=== PATIENT | male | born 1955 | race Caucasian/White ===

== ENCOUNTER 2016-11-19 10:17 | Inpatient (IN) | payer OTHER ==
[~2016-11-19] VITALS: Ht 180.3 cm; Wt 109.9 kg
--- NOTE | ~2016-11-19 | HP ---
ADMIT: 11/19/2016 RM/LOC: 419 [facility] MR#: [id number] [address] [address] [place] [address] History and Physical SEX: M AGE: 61 : 1955 Corrected: 11/20/2016 0724 njv DATE OF SERVICE: CHIEF COMPLAINT: Left arm pain and swelling, discharge. HISTORY OF PRESENT ILLNESS: Escobar is a 61-year-old gentleman who presented to the [facility] Emergency Department today with approximately 8 days of progressively worsening swelling, redness, and warmth from his left arm and a draining wound overlying the left olecranon. The wound was suffered as a result of falling through a crawl space door about a week ago over the hol. As it was closed over the , he did not seek medical care, and since that time, the laceration has done nothing but continuing to drain a seropurulent fluid. The swelling and redness in his arm and tenderness in his arm as well as the warmth have all really gotten worse in the last 24 to 48 hours and he has began running fevers as a result of this. PAST MEDICAL HISTORY: Remarkable for; 1. Diabetes mellitus, type 2, insulin dependent. 2. Hyperlipidemia. 3. Hypertension. 4. Obesity. 5. History of bladder cancer. 6. Additionally, he also has obstructive sleep apnea. PAST SURGICAL HISTORY: He has had a skin graft to his back. He had an excision of a bladder cancer and lastly a septoplasty for his obstructive sleep apnea. MEDICATIONS: His outpatient medications include; 1. Metformin 1000 mg b.i.d. 2. Lipitor 80 mg daily. 3. Lantus. 4. TriCor 145 mg daily. 5. It should be noted that he is also on doxycycline 100 mg b.i.d., which was started by his outpatient provider, Dr. Bentley, sometime in the last week or so. ALLERGIES: HE HAS NO KNOWN MEDICAL ALLERGIES. SOCIAL HISTORY: He is . His is with him here in the ER as I see them. He denies any history of tobacco use. He is not a current smoker or chewer. He denies any alcohol or recreational drug use. He is retired. 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 REVIEW OF SYSTEMS: He denies any chest pain, shortness of breath, abdominal pain, nausea, vomiting, or diarrhea. Remainder of his review of systems is as per HPI. All others reviewed were negative. ADMIT: 11/19/2016 RM/LOC: 419 [facility] MR#: [id number] [address] [place] [id number] [place] [address] History and Physical SEX: M AGE: 61 : 1955 PHYSICAL EXAMINATION: VITAL SIGNS: His blood pressure is 123/77, pulse 86, respirations 18, temperature 99.5, and O2 saturation is 98% on room air. Weight is 108.3 kg. GENERAL: He is awake, alert, uncomfortable, but not in any acute distress. HEENT: Normocephalic and atraumatic. HEART: Regular rate and rhythm. No murmurs, gallops, or rubs. LUNGS: Clear to auscultation bilaterally. ABDOMEN: Soft, nontender, and nondistended. No rebound, guarding, or masses. EXTREMITIES: His left arm from about the mid biceps region all the way down to the wrist is 2 to 3+ swollen, mildly erythematous, very warm, and he has a 1- 1/2 to 2 cm laceration overlying the left olecranon, which is draining a seropurulent fluid. He is very tender over this area. LABORATORY AND X-RAY DATA: CBC shows an elevated white count of 12, hemoglobin of 11.7, and platelets of 220. Procalcitonin is negative. CMP remarkable only for random glucose of 262. Cardiac enzymes are negative. EKG is unremarkable. Showing sinus rhythm without any hyperacute ST or T-wave changes. No ischemic changes. Blood cultures are pending. INR is within the acceptable range. Lactic acid is pending. ASSESSMENT: 1. Left arm cellulitis. 2. Questionable left septic olecranon bursitis. 3. Diabetes mellitus, type 2, control unknown. ADMIT: 11/19/2016 RM/LOC: 419 [facility] MR#: [id number] [address] [place] [phone] ESC[place] [address] [place] [address] History and Physical SEX: M AGE: 61 : 1955 4. Hyperlipidemia. 5. Obstructive sleep apnea. 6. History of bladder cancer. PLAN: Escobar will be admitted to the 4th floor PCU tele bed. Start him on vancomycin, Zosyn, and clindamycin empirically. We got to culture that wound. I am also going to have Orthopedics consult to determine if debridement of the area or olecranon bursa is necessary. We will start him on Accu-Cheks and Humalog sliding scale, and start him on Dilaudid EPIC SPECIALIST for pain. We will start him on Lovenox and TEDs and SCDs for DVT prophylaxis. Abhijeet Sheppard MD/ hortencia JOB #: [id number] CC: Abhijeet Sheppard, Attending Physician Charity Bentley, Family Physician Corrected: 11/20/2016 0724 njsabine
--- NOTE | 2016-11-20 09:57 | CO ---
ADMIT: 11/19/2016 RM/LOC: 419 [facility] MR#: [id number] [address] [place] [phone] [place] [address] Consultation Report SEX: M AGE: 61 : 1955 Corrected: 11/20/2016 0807 njv DATE OF CONSULTATION: 11/19/2016 ATTENDING PHYSICIAN: Abhijeet Sheppard CONSULTING PHYSICIAN: Cady Loving MD CHIEF COMPLAINT: Left elbow pain. HISTORY: This 61-year-old male, presents to the emergency room with a small laceration over the left elbow he sustained in his home a week ago. Yesterday, he said that it drained quite a bit through the week, but night, he started having pain, swelling, redness, and drainage changed to purulent material. Because of this, he was evaluated at [facility] yesterday, placed on I believe doxycycline and because of his progressive increase in pain and swelling, he presented to the ER. PAST MEDICAL HISTORY: He has a history of diabetes. MEDICATIONS: Listed in the chart. ALLERGIES: HE REPORTS NO ALLERGIES TO MEDICINES. FAMILY HISTORY: Noncontributory. PHYSICAL EXAMINATION: This patient has 2 to 3+ soft tissue swelling in the entire hand, forearm, and elbow area, has 1 cm laceration over the tip of the olecranon and a very boggy edematous olecranon bursa. He has no pain with range of motion of the elbow joint itself. He has erythema that now extends ADMIT: 11/19/2016 RM/LOC: 419 [facility] MR#: [id number] [address] [place] [phone] [address] [place] [address] [place] [address] Consultation Report SEX: M AGE: 61 : 1955 from around the elbow, which is the most severe all the way down to the wrist. IMPRESSION: Septic left olecranon bursitis with cellulitis left arm. RECOMMENDATIONS: I have discussed this with both the patient and the patient's . I recommended incision and drainage of the left olecranon bursa. This may need to be packed open and close secondarily. They understand. All questions were answered. Risks, benefits, alternatives, as well as potential complications were discussed. We will proceed on 11/20/2016. Cady Loving MD/ hortencia JOB #: [id number] CC: Abhijeet Sheppard, Attending Physician Charity Bentley, Family Physician Corrected: 11/20/2016 0807 brian
--- NOTE | 2016-11-21 15:52 | OR ---
ADMIT: 11/19/2016 RM/LOC: 419 [id number] [id number] [address] [address] [place] [address] Operative/Delivery Room Report SEX: M AGE: 61 : 1955 SURGERY DATE: 11/20/2016 SURGEON: Cady Loving MD PREOPERATIVE DIAGNOSIS: Left septic olecranon bursitis with cellulitis. POSTOPERATIVE DIAGNOSIS: Left septic olecranon bursitis with cellulitis. PROCEDURES: 1. Incision and drainage, left elbow. 2. Excise septic bursa, left elbow. ANESTHESIA: General. INFUSION RN: PRINCE Lopez TOURNIQUET TIME: 20 minutes. ESTIMATED BLOOD LOSS: 10 mL. SPECIMEN: Bursa. DESCRIPTION OF PROCEDURE: This patient was brought to the operating room. After satisfactory level of general anesthesia was achieved, the left upper extremity was prepped and draped in the usual sterile fashion. The patient had an oblique 1 cm laceration over the olecranon process. Under tourniquet ischemia, I used both limbs of this to make a longitudinal incision ending up with a Z-type incision. Skin flaps were developed at the level of the subcutaneous tissue. The laceration went directly into the olecranon bursa and the bursa was very thickened and draining purulent material. Even the soft tissues oozed purulent drainage. The bursa was then circumferentially excised and any necrotic soft tissue was debrided as well. I then irrigated the wound using pulsatile lavage using 3 L of bacitracin solution, then 3 L of normal saline. When completed, I released the tourniquet, obtained hemostasis. Then I packed the wound open with Betadine-soaked 2 inch Vani, then loosely closed the skin over the packing using interrupted 2-0 nylon. A bulky sterile dressing was applied and the arm wrapped from [id number]-fb-[id number] with Bj bandage and when completed, the patient was transferred from the operative suite in stable condition. Cady Loving MD/ hortencia JOB #: [id number] CC: Abhijeet Sheppard, Attending Physician Charity Bentley, Family Physician
--- NOTE | 2016-11-23 07:41 | ER ---
ADMIT: 11/19/2016 RM/LOC: ER [facility] MR#: [id number] [address] [address] [place] [address] Emergency Room Report SEX: M AGE: 61 : 1955 DATE: 11/19/2016 ADDENDUM: CHIEF COMPLAINT: Swollen left arm. 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 Bentley. He saw her actually in the clinic yesterday, started on doxycycline. The wound has worsened today and has continued to have fever, so came into the ER. A sepsis protocol was ordered. Procalcitonin is 0.13. CMP is normal except for glucose of 262, albumin 3.3, and GFR of 58. Cardiac enzymes are normal. White count is 12 and hemoglobin is 11.7. PT, INR are 12.9 and 1.23. Chest x- ray is negative for any acute infection. Lactic acid is less than 0.1. EKG shows sinus rhythm rate at 81. No ST elevation or depression. CLINICAL IMPRESSION: Cellulitis to the left arm. He was admitted to Dr. Sheppard. Dr. Sheppard came into the ED to see the patient. PRINCE Cleary / Acosta Berumen MD / hortencia JOB #: [id number] CC: Acosta Berumen MD, Attending Physician Charity Bentley MD, Family Physician
[2016-11-25] MEDS ORDERED: GLUCOPHAGE1000 MG PO (10:20)
[2016-11-25] MEDS ORDERED: LIPITOR80 MG PO (10:20)
[2016-11-25] MEDS ORDERED: TRICOR145 MG PO (10:20)
[2016-11-25] MEDS ORDERED: LORTAB 7.5-3251 EACH PO (10:21)
[2016-11-25] MEDS ORDERED: KEFLEX-DPS500 MG PO (10:21)
[2016-11-25] MEDS ORDERED: LANTUS100 UNITS/ SQ (10:21)
--- NOTE | 2016-12-02 08:41 | DS ---
ADMIT: 11/19/2016 RM/LOC: 419 [facility] MR#: [id number] [facility]#: [id number] [address] [address] ESCOBAR [place] [address] [place] [address] Discharge Summary SEX: M AGE: 61 : 1955 ADMISSION DATE: 11/19/2016 DISCHARGE DATE: 11/24/2016 ADMITTING DIAGNOSES: 1. Left arm cellulitis. 2. Questionable left septic olecranon bursitis. 3. Diabetes mellitus, type 2. 4. Hyperlipidemia. 5. Obstructive sleep apnea. 6. History of bladder cancer. 7. Obesity. DISCHARGE DIAGNOSES: 1. Left upper extremity cellulitis, improving. 2. Septic left olecranon bursitis, status post left olecranon bursectomy. 3. Diabetes mellitus, type 2. 4. Hypertension. 5. Hyperlipidemia. 6. Obesity. 7. History of bladder cancer. 8. Obstructive sleep apnea. CONSULTATIONS: Cady Loving M.D., Orthopedics, consulted on 11/19/2016 for possible left septic olecranon bursitis. PROCEDURES: Incision, drainage, and excision of septic left olecranon bursa, performed by Dr. Loving on 11/20/2016. HISTORY AND PHYSICAL EXAM: Mr. Martinez is a very pleasant 61-year-old gentleman who presented to the [facility] Emergency Department on 11/19/2016 with complaints of progressively worsening redness, swelling, warmth, and discharge from his left elbow and pain in the left upper extremity for approximately eight days prior to admission. He notes that he had suffered a small laceration to his olecranon area of his skin approximately eight days prior to admission. He was walking over a crawl space and slipped. As it was over the , he did not seek medical attention for the injury and then slowly over the ensuing several days, began noticing redness, warmth, pain, and a seropurulent fluid discharging from the wound over his elbow. He also had begun running fevers as result. On his initial exam, his vitals were stable. He was afebrile. He did, however, have 2-3+ swelling in the left upper extremity extending all the way down into his hands to the point where he could barely identify his MCPs and redness extending up to about his mid arm. He had a 1-1.5 cm laceration overlying his left olecranon bursa from which there was a purulent fluid draining. On his initial lab testing, he had an elevated white count of 12,000, negative procalcitonin, and a random glucose of 262. EKG and cardiac enzymes were unremarkable. Blood cultures were negative. He was subsequently admitted to the hospital for IV antibiotics and Orthopedic consultation. ADMIT: 11/19/2016 RM/LOC: 419 [facility] MR#: [id number] [address] [place] [phone] ESCOBAR MARITNEZ [address] [place] [address] Discharge Summary SEX: M AGE: 61 : 1955 HOSPITAL COURSE: Overall, his hospital course was unremarkable. He was started initially on vancomycin, clindamycin, and Zosyn for the infection. A culture of the discharge from the left olecranon region did come back growing group C strep and his antibiotics were tailored to include discontinuation of his vancomycin, clindamycin, and Zosyn, and he was instead started on Rocephin. Dr. Loving with Orthopedics was consulted for possible left septic olecranon bursitis and did agree that Escobar needed to have this irrigated and debrided. He underwent irrigation debridement of the septic olecranon bursa on 11/20/2016. His antibiotics were continued postoperatively and a decision was made to take him back to the operating room on 11/23/2016 to wash out the wound one more time and to close it. By the morning of 11/24/2016, he had significant improvement of the swelling and cellulitis changes in the rest of his extremity. He did obviously have pain where his elbow had been washed out, but overall clinically, he was much improved. He had remained afebrile. He was tolerating the antibiotics and it was felt that this could be managed further as an outpatient. He was thus discharged from the hospital. DISCHARGE CONDITION: Good. DISPOSITION: He is being discharged home. Discharge medications will include: 1. Lipitor 80 mg at HS. 2. TriCor 145 mg daily. 3. Lantus 35 units at HS. 4. Hydrocodone 7.5/325 one to two tabs every 6 hours as needed for pain. 5. Keflex 500 mg one tab p.o. q.i.d. for an additional 10 days. 6. Metformin 1000 mg b.i.d. FOLLOW UP: I have asked that he follow up in my clinic on 11/28/2016, at 4:00 in the afternoon. I have made this appointment for him and we will clarify with Dr. Loving what he would like for a followup prior to discharge. Abhijeet Sheppard MD/ brian JOB #: [id number] CC: Abhijeet Sheppard MD, Attending Physician Charity Bentley MD, Family Physician
--- NOTE | 2016-12-05 11:26 | OR ---
ADMIT: 11/19/2016 RM/LOC: 419 [facility] MR#: [id number] [address] [address] [place] [address] Operative/Delivery Room Report SEX: M AGE: 61 : 1955 Corrected: 11/30/2016 1244 djs SURGERY DATE: 11/23/2016 SURGEON: Cady Loving MD PREOPERATIVE DIAGNOSES: 1. Incision and drainage, infected left olecranon bursa. 2. Excision left olecranon bursa. ANESTHESIA: General. AQUATIC INSTRUCTOR: PRINCE Lopez. DRAINS: 2 Hemovac drains. ESTIMATED BLOOD LOSS: 25 mL. DESCRIPTION OF PROCEDURE: This patient was brought to the operating room. After a satisfactory level of anesthesia was achieved. The dressing was removed from the left elbow. Several stay sutures were removed and then the packing removed from the wound. The wound appeared to be very clean and no purulent material encountered. The extremity was prepped and draped in the usual sterile fashion. I first irrigated with pulsatile lavage using 3 L of antibiotic solution. Then, another 3 L of normal saline. Once it was thoroughly irrigated, I placed 2 Hemovac drains within the wound and brought it out through separate puncture wounds and at this point, I closed the wound with multiple layers of 2-0 Vicryl in the subcutaneous tissue to minimize space and interrupted 2-0 nylon in the skin. A sterile dressing was applied to the wound and the patient was then transferred from the operative suite in stable condition. Cady Loving MD/ hortencia JOB #: [id number] CC: Abhijeet Shepprad, Attending Physician Charity Bentley, Family Physician Corrected: 11/30/2016 1244 djfaby
== END 2016-11-24 10:51 | disposition home or self-care (01) | DRG 501 ==
LOC: ER 10:17 → 4PCU 12:25
PROVIDERS: ADMIT Family Medicine
DX: M70.22 Olecranon bursitis, left elbow (principal); L03.114 Cellulitis of left upper limb; E11.65 Type 2 diabetes mellitus with hyperglycemia; I10 Essential (primary) hypertension; B95.4 Other streptococcus as the cause of diseases classified elsewhere; E78.5 Hyperlipidemia, unspecified; S51.012A Laceration without foreign body of left elbow, initial encounter; W17.89XA Other fall from one level to another, initial encounter; G47.33 Obstructive sleep apnea (adult) (pediatric); E66.9 Obesity, unspecified; Z85.51 Personal history of malignant neoplasm of bladder; Z79.4 Long term (current) use of insulin; Z68.33 Body mass index [BMI] 33.0-33.9, adult